=== PATIENT | male | born 1960 | race Two or more races ===

== ENCOUNTER → 2024-11-23 | Outpatient (CLI) | payer MEDICAID, SELFPAY ==
--- NOTE | 2024-11-23 09:51 | XR_ITS ---
Examination: Right knee 2 views TECHNIQUE: AP lateral right knee 2 views Exam date and time: November 23, 2024 at 1007 hours INDICATIONS: Right knee pain beginning one year ago. FINDINGS: Moderate to advanced tricompartment osteoarthritis Significant narrowing medial patellofemoral joints No fracture IMPRESSION: Moderate to advanced tricompartment osteoarthritis
--- NOTE | 2024-11-23 09:51 | XR_ITS ---
Examination: Bone length study Scanogram Exam date and time: November 23, 2024 1003 hours INDICATIONS: Right knee pain one year. FINDINGS: Right leg length is 8 mm shorter than left leg length This is primarily secondary to shorter right femur length Advanced right hip osteoarthritis Moderate osteopenia No fracture IMPRESSION: Right leg beginning this 8mm shorter than left leg length This is primarily secondary to shorter right femur length
== END | disposition home or self-care (01) ==
LOC: CDIM 09:42
PROVIDERS: PCP Nurse Practitioner Family; Referring Provider Orthopaedic Surgery; Visit Provider Orthopaedic Surgery
DX: M17.11 Unilateral primary osteoarthritis, right knee (principal); M89.251 Other disorders of bone development and growth, right femur
CPT/HCPCS: 73560; 77073

== ENCOUNTER 2024-11-29 09:10 | Emergency (ER) | payer MEDICAID, SELFPAY ==
[2024-11-29 09:38] VITALS: BP 137/95; PULSE 79; RESP 19; TEMP 36.8; O2SAT 95; BMI 31.6
[2024-11-29] MEDS: DEXAMETHASONE SOD PHOS INJ 10 MG/ML VIAL PO (10:06)
[2024-11-29] MEDS: IBUPROFEN SUSP 100 MG/5 ML UDC 600 MG PO (10:07)
[2024-11-29 10:35] LABS: Strep A Rapid Negative (Negative)
--- NOTE | 2024-11-29 10:43 | PD.EDURI ---
Upper Respiratory Inf. RME/HPI General Chief Complaint: Dental/Oral/Throat Stated Complaint: Ball hanging in his throat Time Seen by Provider: 11/29/24 09:14 Arrival date/time: 11/29/24 09:10 64-year-old male everyday smoker with medical history significant for hypertension and hypercholesterolemia presents to the emergency department today complaints of uvula swelling. Patient reports no difficulty breathing or swallowing but does report that it is irritating that his uvula feels swollen Limitations: no limitations Related Data Home Medications ?Medication ?Instructions ?Recorded ?Confirmed lisinopril 20 mg tablet 40 mg PO QDAY #0 tabs 10/02/17 07/29/24 carvedilol 6.25 mg tablet 6.25 mg PO BID 10/04/18 07/29/24 tamsulosin 0.4 mg capsule 0.4 mg PO QHS 04/24/22 07/29/24 amitriptyline 50 mg tablet 25 mg PO QHSPRN 08/27/23 07/29/24 atorvastatin 10 mg tablet 10 mg PO QHSPRN 08/27/23 07/29/24 azelastine 137 mcg (0.1 %) nasal 2 spray intranasal BID 08/27/23 07/29/24 spray chlorthalidone 15 mg tablet 15 mg PO QDAY 08/27/23 07/29/24 (Thalitone) loratadine 10 mg tablet 10 mg PO QDAY 08/27/23 07/29/24 Previous Rx's ?Medication ?Instructions ?Recorded meloxicam 7.5 mg tablet 7.5 mg PO QDAY #45 tabs 05/24/24 amoxicillin 875 mg-potassium 1 tab PO BID 7 days #14 tabs 11/29/24 clavulanate 125 mg tablet ibuprofen 600 mg tablet 600 mg PO Q6H #30 tabs 11/29/24 prednisone 10 mg tablet 30 mg (3 x 10 mg) PO BID 3 days 11/29/24 #18 tabs Allergies Allergy/AdvReac Type Severity Reaction Status Date / Time No Known Allergies Allergy Verified 11/29/24 09:14 Review of Systems Review of Systems Systems Reviewed: All systems reviewed, normal except as documented Constitutional Constitutional: Reports system reviewed and no additional complaints, except as documented, Denies fever(s) and Denies headache(s) Eyes Eyes: Reports system reviewed and no additional complaints, except as documented and Denies blurry vision ENT Ears, Nose, Mouth, and Throat: Reports system reviewed and no additional complaints, except as documented, Denies headache(s), Denies nasal congestion, Denies nasal discharge and Reports other (Uvula swelling) Cardiovascular Cardiovascular: Reports system reviewed and no additional complaints, except as documented, Denies chest pain and Denies dyspnea Respiratory Respiratory: Reports system reviewed and no additional complaints, except as documented, Denies chest congestion, Denies cough and Denies dyspnea Gastrointestinal Gastrointestinal: Reports system reviewed and no additional complaints, except as documented and Denies abdominal pain Integumentary/Breasts Skin/Breast: Reports system reviewed and no additional complaints, except as documented and Denies rash Neurologic Neurologic: Reports system reviewed and no additional complaints, except as documented, Reports as per HPI and Denies headache(s) Past Medical History Past Medical History NEUROLOGIC: Negative Neurological Disorders or Seizures CARDIAC: Positive Cardiac Disorders (CHF), Hypercholesterolemia, Congestive Heart Failure and Hypertension RESPIRATORY: Positive Bronchitis, Sleep Apnea, Smoking (25 YEARS) and Smoking Exposure; Negative Chronic Obstructive Pulmonary Disease (COPD), Asthma or Smoking Cessation Counseling GASTROINTESTINAL: Positive Gastrointestinal Disorders, Hemorrhoids and Obesity GENITOURINARY: Positive Benign Prostatic Hyperplasia; Negative Genitourinary Disorders or Renal Disease MUSCULOSKELETAL: Positive Musculoskeletal Disorders, Arthritis and Fractures ENDOCRINE: Negative Endocrine Disorders, Diabetes Mellitus Type 1 or Diabetes Mellitus Type 2 HEMATOLOGIC: Negative Blood Disorders or Sickle Cell Disease PSYCHO/SOCIAL: Positive Anxiety OTHER HISTORY: Positive Autoimmune Disease, Chicken Pox and Measles; Negative Hospitalization, Shingles, Falls, Blood Transfusions, Anesthesia Reactions, Chemotherapy or Radiation Therapy Family History FAMILY HISTORY: Positive Family Cardiac Disorders, Family Cancer and Family Surgery; Negative Family Psychiatric Problems, Family Respiratory Disorders, Family Gastrointestinal Problems or Family Anesthesia Reaction Surgical History SURGICAL: Positive Angiogram Social History SMOKING STATUS: Current every day smoker SUBSTANCE USE: marijuana ED Exam General Limitations: Present no limitations General appearance: Present alert and in no apparent distress Head Head exam: Present atraumatic, normocephalic and normal inspection Eye Eye exam: Present normal appearance, PERRL and EOMI; Absent conjunctival injection ENT ENT exam: Present mucous membranes moist and other (Uvula swelling) Neck Neck exam: Present normal inspection, full ROM and trachea midline Chest Chest inspection: Present normal inspection and symmetric chest wall rise Respiratory Respiratory exam: Present normal lung sounds bilaterally Cardiovascular Cardiovascular exam: Present regular rate, normal rhythm and normal heart sounds Abdominal Exam Abdominal exam: Present soft and normal bowel sounds Extremities Exam Extremities exam: Present normal inspection and full ROM Back Exam Back exam: Present normal inspection and full ROM Neurological Exam Neurological exam: Present alert, oriented X3 and CN II-XII intact Psychiatric Psychiatric exam: Present normal affect and normal mood Skin Skin exam: Present warm, dry, intact and normal color Course Quality Measures none Orders Category Date Time Status Strep A Rapid Stat Lab 11/29/24 10:10 Completed Dexamethasone Inj [Decadron Inj] Med 11/29/24 09:52 Discontinued 10 mg PO X1 ONE Ibuprofen Susp [Motrin Susp] Med 11/29/24 09:52 Discontinued 600 mg PO X1 ONE Vital Signs Vital signs: Vital Signs Temperature 98.3 F 11/29/24 09:38 Pulse Rate 79 11/29/24 09:38 Respiratory Rate 19 11/29/24 09:38 Blood Pressure 137/95 H 11/29/24 09:38 Pulse Oximetry (%) 95 11/29/24 09:38 Oxygen Delivery Method Room Air 11/29/24 09:38 O2 saturation 95% room air within normal limits Upper Respiratory Infection MDM Narrative MDM Narrative:: 64-year-old male everyday smoker with medical history significant for hypertension and hypercholesterolemia presents to the emergency department today complaints of uvula swelling. Patient reports no difficulty breathing or swallowing but does report that it is irritating that his uvula feels swollen On exam patient well-appearing patient does not appear ill or toxic and in no acute distress On exam patient does have uvula swelling patient is no trismus no hoarseness of voice no difficulty swallowing or breathing no evidence of anaphylaxis Consultation: I spoke with my attending physician examined the patient as well Patient given a dose of steroids as well as ibuprofen Patient checked for strep which came back negative Prior to final disposition patient appears to have eloped from the ER Patient data External records reviewed:: [facility] [place] previous records Clinical information provided by:: patient Social determinants that could affect healthcare access:: none Patient has the following chronic illnesses:: See history How is presenting disease/condition affected by chronic disease/condition?: uneffected by Evaluation data The following diagnostics were reviewed and interpreted by me:: lab results Lab and/or radiology exams considered but not ordered:: Lab obtain Interpretation Summary: Reviewed by me Medications / Prescriptions Medications or Prescriptions considered but not ordered:: Ordered Medication administrations:: Medication Administration History Discontinued Medications Dexamethasone Sodium Phosphate (Dexamethasone Sod Phos Inj 10 Mg/Ml Vial) 10 mg PO X1 ONE Stop: 11/29/24 09:53 Last Admin: 11/29/24 10:06 Dose: 10 mg Documented By: ED Ibuprofen (Ibuprofen Susp 100 Mg/5 Ml Udc) 600 mg PO X1 ONE Stop: 11/29/24 09:53 Last Admin: 11/29/24 10:07 Dose: 600 mg Documented By: ED Ordered Consultations Consultation(s) initiated? (list below): No Diagnosis Upper Respiratory Differential Diagnosis: upper respiratory infection, sinusitis, viral infection, bronchitis and influenza Most likely diagnosis given after review of the tests above:: Uvulitis Admission Indicated Admission indicated?: not indicated Admission Request Was there a request for admission?: No Disposition Plan Disposition Plan: Discharge Discharge Attestation Discharge Attestation: The patient and all family members were given an opportunity to ask questions and understood the discharge instructions. Discharge instructions specifically effects, indications for sooner follow up or return to the emergency department, and the expected course of current diagnosis. Patient condition: Stable Discharge Plan Plan Patient Disposition: HOME (Self Care) Disposition Comment: Stable Prescriptions/Referrals Prescriptions/Med Rec: New prednisone 10 mg tablet 30 mg PO BID 3 Days Qty: 18 0RF ibuprofen 600 mg tablet 600 mg PO Q6H Qty: 30 0RF amoxicillin-pot clavulanate 875-125 mg tablet 1 tab PO BID 7 Days Qty: 14 0RF No Action tamsulosin 0.4 mg capsule 0.4 mg PO QHS meloxicam 7.5 mg tablet 7.5 mg PO QDAY Qty: 45 3RF lisinopril 20 MG tablet 40 mg PO QDAY Qty: 0 carvedilol 6.25 mg Tablet 6.25 mg PO BID Thalitone 15 mg tablet 15 mg PO QDAY Patient Comments: TAKE 1 TABLET BY MOUTH EVERY DAY atorvastatin 10 mg tablet 10 mg PO QHSPRN Patient Comments: TAKE 1 TABLET BY MOUTH EVERYDAY AT BEDTIME amitriptyline 50 mg tablet 25 mg PO QHSPRN Patient Comments: TAKE 1 & 1/2 TABLET BY ORAL ROUTE EVERY DAY AT BEDTIME FOR NEUROPATHIC PAIN azelastine 137 mcg (0.1 %) aerosol,spray 2 spray INTRANASAL BID Patient Comments: USE 2 SPRAYS INTO EACH NOSTRIL TWICE A DAY loratadine 10 mg tablet 10 mg PO QDAY Patient Comments: TAKE 1 TABLET BY MOUTH EVERY DAY Referrals: Raphael(Santosh),EDDA Pierson [Primary Care Provider] - In 1 week Problem List Clinical Impression: Uvulitis Patient/Caregiver Discharge Instructions Education Materials: ED Uvulitis Additional Instructions: Please follow up with your primary care doctor in the next 24-48hrs for any worsening symptoms return here immediately Print Language: Bulgarian Stand Alone Forms: [employer] Award Info., Patient Portal Info Letter PA/[employer]INE[employer] CHIEF Supervising Physician PA/ASHWIN Supervising Physician: Dr kiser
== END 2024-11-29 10:58 | disposition home or self-care (01) ==
PROVIDERS: Nurse Practitioner Primary Care; Emergency Provider Emergency Medicine; PCP Nurse Practitioner Family
DX: K12.2 Cellulitis and abscess of mouth (principal); I10 Essential (primary) hypertension; E78.00 Pure hypercholesterolemia, unspecified
CPT/HCPCS: 87651; 99283; J1100; A9270

== ENCOUNTER → 2024-12-09 | Outpatient (CLI) | payer MEDICAID, SELFPAY ==
--- NOTE | 2024-12-09 | XR_ITS ---
Examination: PA lateral chest 2 views Technique: Upright PA lateral chest 2 views Exam date and time: December 09, 2024 0735 hrs. Comparison December 23, 2022 Indications: Smoking history 20 years Findings: Mild prominence of ventricle Subsegmental atelectasis left base and left midlung zone No pneumonia or pulmonary edema No pulmonary nodules depicted Mild old wedging of lower dorsal vertebral bodies Impression: No pneumonia or pulmonary nodules noted
== END | disposition home or self-care (01) ==
LOC: CDIM 07:20
PROVIDERS: Referring Provider Nurse Practitioner Family; Visit Provider Nurse Practitioner Family
DX: F17.200 Nicotine dependence, unspecified, uncomplicated (principal); Z01.818 Encounter for other preprocedural examination
CPT/HCPCS: 71046

== ENCOUNTER → 2025-02-14 | Outpatient (CLI) | payer MEDICAID, SELFPAY ==
--- NOTE | 2025-02-14 | XR_ITS ---
Examination: AP lateral right knee 2 views Technique: AP lateral right knee 2 views Date and time: 2024 0729 hours INDICATIONS: Post right knee replacement FINDINGS: Comparison November 23, 2024 Total right knee replacement Satisfactory alignment No fracture. No loosening of the prosthetic components IMPRESSION: Total right knee arthroplasty with satisfactory alignment
== END | disposition home or self-care (01) ==
LOC: CDIM 06:54
PROVIDERS: PCP Nurse Practitioner Family; Referring Provider Orthopaedic Surgery; Visit Provider Orthopaedic Surgery
DX: Z96.651 Presence of right artificial knee joint (principal)
CPT/HCPCS: 73560

== ENCOUNTER → 2025-05-11 | Outpatient (CLI) | payer MEDICAID, SELFPAY ==
--- NOTE | 2025-05-11 | XR_ITS ---
Examination:Left hip AP, lateral, AP pelvis 3 views Technique: Hip AP lateral, AP pelvis, 3 views Exam date and time:May 11, 2025, 0719 hours INDICATIONS: Left hip pain 3 months. FINDINGS: No left hip fracture or dislocation Moderate left hip osteoarthritis. Advanced right hip osteoarthritis Bones of the pelvis intact IMPRESSION: Moderate left hip osteoarthritis Advanced right hip osteoarthritis.
== END | disposition home or self-care (01) ==
LOC: CDIM 06:43
PROVIDERS: PCP Nurse Practitioner Family; Referring Provider Nurse Practitioner Family; Visit Provider Nurse Practitioner Family
DX: M16.0 Bilateral primary osteoarthritis of hip (principal)
CPT/HCPCS: 73502